=== PATIENT | male | born 1960 | race Caucasian/White ===

== ENCOUNTER → 2024-08-21 11:17 | Outpatient (REF) | payer MEDICARE, OTHER, SELFPAY | LOC: HWRAD 11:17 | PROVIDERS: ATTENDING PHYSICIAN Family Medicine | DX: M54.12 Radiculopathy, cervical region (principal); M25.511 Pain in right shoulder | CPT/HCPCS: 72052; 73030 ==

== ENCOUNTER 2024-10-15 12:56 | Outpatient (RCR) | payer MEDICARE, OTHER, SELFPAY | END 2024-10-15 23:59 | disposition home or self-care (01) | LOC: RPT 12:56 | PROVIDERS: ATTENDING PHYSICIAN Physical Medicine & Rehabilitation; FAMILY PHYSICIAN Family Medicine | DX: M54.12 Radiculopathy, cervical region (principal); M50.30 Other cervical disc degeneration, unspecified cervical region; Z73.6 Limitation of activities due to disability; M25.511 Pain in right shoulder | CPT/HCPCS: 97010; 97110; 97112; 97140; 97161 ==

== ENCOUNTER 2024-10-29 12:07 | Outpatient (RCR) | payer MEDICARE, OTHER, SELFPAY | END 2024-10-29 13:26 | disposition home or self-care (01) | LOC: RPT 12:07 | PROVIDERS: ATTENDING PHYSICIAN Physical Medicine & Rehabilitation; FAMILY PHYSICIAN Family Medicine | DX: M54.12 Radiculopathy, cervical region (principal); M50.30 Other cervical disc degeneration, unspecified cervical region; Z73.6 Limitation of activities due to disability; M25.511 Pain in right shoulder | CPT/HCPCS: 97110 ==

== ENCOUNTER → 2025-04-21 14:04 | Outpatient (REF) | payer MEDICARE, OTHER, SELFPAY | LOC: HWRAD 14:04 | PROVIDERS: ATTENDING PHYSICIAN Podiatrist Foot & Ankle Surgery; FAMILY PHYSICIAN Family Medicine | DX: M79.5 Residual foreign body in soft tissue (principal); S91.321A Laceration with foreign body, right foot, initial encounter | CPT/HCPCS: 76882 ==